=== PATIENT | female | born 1990 | race Caucasian/White ===

== ENCOUNTER 2024-01-08 13:31 | Emergency (ER) | payer OTHER, SELFPAY ==
[2024-01-08 13:39] VITALS: BP 149/100; PULSE 104; RESP 16; TEMP 36.8; O2SAT 98
--- NOTE | 2024-01-08 13:41 | PC.NURSE ---
in br to obtain ua spec.
--- NOTE | 2024-01-08 13:43 | ED.FEMALEGU ---
HPI - Female Genitourinary General Chief complaint: Urogenital-Female Stated complaint: Urinary Problem Source: patient, RN notes reviewed and old records reviewed Mode of arrival: ambulatory Limitations: no limitations History of Present Illness HPI Narrative: 33 year old female who presents to [facility] care with complaints of urinary frequency with voiding of small amounts since Tuesday. Last night patient reports that she started having some right flank discomfort which radiates around to mid abdomen and described as crampy. Patient reports that she also has some burning type of discomfort with urination, relays history of past UTI's. Patient reports that she has not had any nausea or vomiting or diarrhea, denies any fevers or chills.Patient reports no vaginal discharge or itching or concern for STD exposure MD elicited complaint: UTI Pertinent past history: other (UTI) Onset (ago): day(s) (5 days initial symptoms with increase symptoms past 24 hours.) Location of symptoms: suprapubic, urethra and flank (right) Severity scale (1-10): 6 Vaginal discharge: none Vaginal bleeding: none Urinary symptoms: Urgency and Frequency Treatment prior to arrival: other (cranberry juice and increased water intake) Related Data Home Medications Medication Instructions Recorded Confirmed enoxaparin 100 mg/mL subcutaneous mg 01/08/24 syringe hydroxychloroquine 200 mg tablet mg PO 01/08/24 labetalol 100 mg tablet mg 01/08/24 Allergies Allergy/AdvReac Type Severity Reaction Status Date / Time No Known Allergies Allergy Verified 01/08/24 13:40 Review of Systems Review of Systems: CONSTITUTIONAL: Denies fever, chills, or sweats. CARDIOVASCULAR: Denies chest pain, palpitations, or edema. RESPIRATORY: Denies cough or dyspnea. GASTROINTESTINAL: states crampy across abdomen, no nausea, vomiting, or diarrhea. GENITOURINARY: Reports dysuria, frequency, urgency. Reports right flank pain, no visible hematuria. SKIN: Denies rash or itching. MUSCULOSKELETAL: Denies back pain or myalgia. Right CVA tenderness NEUROLOGIC: Denies headache All systems reviewed & are unremarkable except as noted in HPI and below PMFSH Past Medical History Medical History (Updated 01/08/24 @ 14:34 by Aleja Aguilar NP) Factor V Leiden Hypertension Lupus Urinary tract infection Surgical History Surgical History (Updated 01/08/24 @ 14:36 by Aleja Aguilar NP) History of cholecystectomy History of dilatation and curettage Previous section Social History Social History (Updated 01/08/24 @ 14:36 by Aleja Aguilar NP) Smoking status: Never smoker Alcohol intake: current Alcohol use details: rare Substance use type: does not use Living arrangements: with family Gender identity (if verbalized by the patient): Female Comments At time of signature, agree with nursing past medical, surgical, social and family history. There is no relevant family history pertinent to the presenting complaint Exam Narrative: GENERAL: Well-appearing, well-nourished,obese and in no acute distress. HEAD: Normocephalic, atraumatic. NECK: Supple.no lymphadenopathy CHEST: Clear to auscultation. No respiratory distress.MAIN 98% on room air HEART: Regular rate and rhythm. No murmur heard. Normal peripheral pulses. ABDOMEN: Soft, crampy tenderness across abdomen,no McBurney point tenderness, nondistended, normal active bowel sounds. Right CVA tenderness EXTREMITIES: Normal range of motion. No edema. SKIN: Warm, dry, no rash. NEURO: No focal deficits. Alert and oriented x3. Course Course Emergency Course: Patient is aware of diagnosis, understands and agrees to treatment plan.? Anticipatory guidance given.? Patient agrees to follow-up as directed and is aware of reasons to seek care at the emergency department.Patient instructed if any increase in right flank pain, nausea, vomiting or fevers go to ED for further evaluation with unders
[2024-01-09 14:29] LABS: EDUAAPPEAR Cloudy; EDUABILI Negative (Negative); EDUABLOOD 2+ (Negative); EDUACOLOR1 Yellow; EDUAGLUCOSE Negative (Negative); EDUAKETONE Negative (Negative); EDUALEUKO Trace (Negative); EDUANITRATE Negative (Negative); EDUAPROTEIN 2+ (Negative); EDUAUROBILI 0.2
== END 2024-01-08 14:14 | disposition home or self-care (01) ==
PROVIDERS: Emergency Provider Registered Nurse; PCP Emergency Medicine
DX: N39.0 Urinary tract infection, site not specified (principal); D68.51 Activated protein C resistance; I10 Essential (primary) hypertension
CPT/HCPCS: 81003; 87086; 87088; 99203; G0463